=== PATIENT | female | born 1990 | race Caucasian/White ===

== ENCOUNTER 2017-06-10 09:28 | Outpatient (CLI) | END 2017-06-10 09:29 | disposition home or self-care (01) | LOC: RHC-LAB 09:28 | PROVIDERS: ATTEND Nurse Practitioner Family | DX: J02.9 Acute pharyngitis, unspecified (principal) | CPT/HCPCS: 87651 ==

== ENCOUNTER 2017-07-01 14:55 | Outpatient (CLI) | END 2017-07-01 14:56 | disposition home or self-care (01) | LOC: RHC-LAB 14:55 | PROVIDERS: ATTEND Nurse Practitioner Family | DX: R50.9 Fever, unspecified (principal) | CPT/HCPCS: 87651; 87804 ==

== ENCOUNTER 2017-09-21 15:56 | Outpatient (CLI) | END 2017-09-21 15:57 | disposition home or self-care (01) | LOC: RHC-LAB 15:56 | PROVIDERS: ATTEND Emergency Medicine | DX: F41.1 Generalized anxiety disorder (principal); F32.1 Major depressive disorder, single episode, moderate; K27.9 Peptic ulcer, site unspecified, unspecified as acute or chronic, without hemorrhage or perforation | CPT/HCPCS: 36415; 80053; 85025 ==

== ENCOUNTER 2017-11-05 09:38 | Outpatient (CLI) ==
--- NOTE | 2017-11-05 11:42 | US ---
EXAM: Ultrasound abdomen limited right upper quadrant HISTORY: Epigastric pain COMPARISON: 09/06/2015 TECHNIQUE: Limited ultrasound abdomen right upper quadrant was performed FINDINGS: Visualized portion pancreas appears normal. Portions of the pancreas obscured secondary t o bowel gas shadowing. Liver normal in size and echogenicity. Stable 2 cm region of echogenicity in the falciform region, likely represents focal fat. Main portal vein patent with normal direction of flow. No shadowing gallstones. No gallbladder wall thickening or pericholecystic fluid. Areas of r ing-down artifact in the gallbladder, consistent with mild adenomyomatosis. No biliary duct dilation with common bile duct measuring 0.4 cm. IMPRESSION: No cholelithiasis. No gallbladder wall thickening. Findings suggesting mild adenomyoma tosis.
== END 2017-11-05 09:39 | disposition home or self-care (01) ==
LOC: RAD 09:38
PROVIDERS: ATTEND Emergency Medicine
DX: R10.13 Epigastric pain (principal)

== ENCOUNTER 2018-08-31 16:18 | Outpatient (CLI) | END 2018-08-31 16:19 | disposition home or self-care (01) | LOC: RHC-LAB 16:18 | PROVIDERS: ATTEND Nurse Practitioner Family | DX: R82.4 Acetonuria (principal) | CPT/HCPCS: 81001 ==

== ENCOUNTER 2018-09-01 15:26 | Outpatient (CLI) ==
--- NOTE | 2018-09-01 15:53 | DI ---
EXAM: KUB. History: Abdominal pain. Findings: Nonspecific but nonobstructive bowel gas pattern. No free intraperitoneal air. No suspic ious calcifications. Six lumbar type vertebral bodies. Partial sacralization of L6 on the right. M ild colonic stool Impression: No acute radiographic findings within the abdomen.
--- NOTE | 2018-09-01 15:55 | DI ---
EXAM: Lumbar spine three view HISTORY: Dorsalgia, unspecified COMPARISON: None TECHNIQUE: Three views lumbar spine were performed FINDINGS: Sacroiliac joints intact. Sacral arcuate intact. Vertebral bodies normal height. No fra cture. No subluxation. Intervertebral disc spaces maintained. Transitional vertebral anatomy on th e right at the lumbosacral junction. IMPRESSION: 1. No fracture or subluxation. 2. Transitional vertebral anatomy on the right at the lumbosacral junction.
== END 2018-09-01 15:27 | disposition home or self-care (01) ==
LOC: RAD 15:26
PROVIDERS: ATTEND Nurse Practitioner Family
DX: M54.9 Dorsalgia, unspecified (principal); G89.29 Other chronic pain; R10.9 Unspecified abdominal pain

== ENCOUNTER 2018-09-03 15:17 | Outpatient (CLI) | END 2018-09-03 15:18 | disposition home or self-care (01) | LOC: LAB 15:17 | PROVIDERS: ATTEND Nurse Practitioner Family | DX: Z00.00 Encounter for general adult medical examination without abnormal findings (principal); R82.4 Acetonuria | CPT/HCPCS: 36415; 80053; 80061; 81001; 84443; 85025 ==

== ENCOUNTER 2018-12-04 11:23 | Emergency (ER) ==
[2018-12-04 11:35] VITALS: BP 122/82; TEMP 98.6; BMI 26.8
[2018-12-04] MEDS ORDERED: SOLU-MEDROL 125 MG IM STA (11:55)
[2018-12-04] MEDS ORDERED: CLARITIN PO STA (11:58)
[2018-12-04] MEDS ORDERED: PEPCID PO STA (11:58)
--- NOTE | 2018-12-04 11:58 | ED.PDOC ---
General ED Provider: Dr. NANCY ALBERTS Chief Complaint: Urinary Problem Stated Complaint: Rash on the face and body. Thinks its a side effect of spironolactone which she was started for Acne. has stopped it two days ago. Also complains of burning after she completed her antibiotics for UTI yesterday. Time Seen by Physician: 11:40 Mode of Arrival: Walk-In Information Source: Patient Nursing and Triage Documentation Reviewed and Agree: Yes Does patient meet sepsis criteria?: No System Inflammatory Response Syndrome: Not Applicable Sepsis Protocol: For patient's 13 years and over: Temp is 96.8 and below OR 101 and greater Pulse >90 BPM Resp >20/minute Acutely Altered Mental Status Are patient's symptoms suggestive of a new infection, such as: -Pneumonia -Skin, Soft Tissue -Endocarditis -UTI -Bone, Joint Infection -Implantable Device -Acute Abdominal Infection -Wound Infection -Meningitis -Blood Stream Catheter Infection -Unknown Skin Complaint Exam - Skin Rash/Itching Complaint/Exam Onset/Duration: 1 week Symptoms Are: Still present Initial Severity: Moderate Current Severity: Severe Location: Face and Trunk Potential Exposures: Reports: Medicines (new medication- spironolactone made is worse.) Prior Treatment: Spironolactone Aggravating: Reports: None Alleviating: Reports: None Skin Findings: Present: Urticaria, Maculae, Papules Differential Diagnoses: Allergic Reaction, Drug Rash, Urticaria Review of Systems - Review Of Systems Constitutional: Reports: No symptoms Eyes: Reports: No symptoms Ears, Nose, Mouth, Throat: Reports: No symptoms Respiratory: Reports: No symptoms Cardiac: Reports: No symptoms GI: Reports: No symptoms : Reports: Dysuria Musculoskeletal: Reports: No symptoms Skin: Reports: Rash Neurological: Reports: Anxiety Endocrine: Reports: No symptoms Hematologic/Lymphatic: Reports: No symptoms All Other Systems: Reviewed and Negative Past Medical History - Past Medical History Previously Healthy: Yes Endocrine: Reports: None Cardiovascular: Reports: None Respiratory: Reports: None Hematological: Reports: None Gastrointestinal: Reports: None Genitourinary: Reports: None Neuro/Psych: Reports: None Musculoskeletal: Reports: None Cancer: Reports: None Last Menstrual Period: 1 month ago Other Pertinent Past Medical History: Chronic ACNE - Surgical History General Surgical History: Reports: None - Family History Family History: Reports: None - Social History Smoking Status: Former smoker Hx Substance Use: No Alcohol Screening: Occasionally - Immunizations Tetanus Shot up to Date: Yes Physical Exam - Physical Exam Appearance: Well-appearing, No pain distress, Well-nourished Eyes: ZO, EOMI, Conjunctiva clear ENT: Nose normal, Oropharynx normal Neck: Supple Respiratory: Airway patent, Breath sounds clear, Breath sounds equal, Respirations nonlabored Cardiovascular: RRR, Pulses normal, No rub, No murmur GI/: Soft, Nontender, No masses, Bowel sounds normal, No Organomegaly Musculoskeletal: Normal strength, ROM intact, No edema, No calf tenderness Skin: Warm, Dry Neurological: Sensation intact, Motor intact, Cranial nerves intact, Alert, Oriented Psychiatric: Anxious Critical Care Note - Critical Care Note Total Time (mins): 0 Course - Course Orders, Labs, Meds: Lab Review 12/04/18 12/04/18 11:55 11:55 Urine Color Yellow Urine Clarity Clear Urine pH 6.0 Ur Specific [place] >=1.030 Urine Protein Negative Urine Glucose (UA) Negative Urine Ketones Negative Urine Blood Negative Urine Nitrite Negative Urine Bilirubin Negative Urine Urobilinogen 0.2 Ur Leukocyte Esterase Negative Urine Test Negative Orders Category Date Time Status URINALYSIS C & S IF INDICATED Stat LAB 12/04/18 11:55 Completed URINE Stat LAB 12/04/18 11:55 Completed Famotidine [Pepcid] MEDS 12/04/18 11:58 Discontinued 20 mg PO ONCE STA Loratadine [Claritin] MEDS 12/04/18 11:58 Discontinued 10 mg PO ONCE STA Methylprednisolone Sod Succ/Pf [Solu-Medrol 125 mg] MEDS 12/04/18 11:55 Discontinued 125 mg IM ONCE STA Medications Discontinued Medications Generic Name Dose Route Start Last Admin Trade Name Freq PRN Reason Stop Dose Admin Famotidine 20 mg 12/04/18 11:58 12/04/18 12:10 Pepcid PO 12/04/18 11:59 20 mg ONCE STA Administration Loratadine 10 mg 12/04/18 11:58 12/04/18 12:10 Claritin PO 12/04/18 11:59 10 mg ONCE STA Administration Methylprednisolone Sodium Succinate 125 mg 12/04/18 11:55 12/04/18 12:10 Solu-Medrol 125 Mg IM 12/04/18 11:56 125 mg ONCE STA Administration Vital Signs: Temp Pulse Resp BP Pulse Ox 12/04/18 11:26 98.6 F 91 H 18 122/82 97 Departure - Departure Time of Disposition: 12:35 Disposition: HOME SELF-CARE Discharge Problem: Drug-induced skin rash Instructions: Acute Rash (ED) Condition: Stable Pt referred to PMD for follow-up: Yes IPMP verified?: No Additional Instructions: Take steroids as prescribe Get OTC Benadryl and take it for itching Followup with PCP Do not resume you SPIRONOLACTONE Prescriptions: Prednisone 20 mg PO DAILYWM #5 tablet Allergies/Adverse Reactions: Allergies Penicillins Allergy (Severe, Unverified 11/24/14 09:18) Hives Home Medications: Ambulatory Orders Doxylamine Succinate [Unisom Sleep Aid] 25 mg PO BEDTIME 08/31/18 Prednisone 20 mg PO DAILYWM #5 tablet 12/04/18
[2018-12-04 12:10] LABS: URINE PREGNANCY TEST NEGATIVE (NEGATIVE)
== END 2018-12-04 12:43 | disposition home or self-care (01) ==
LOC: ED 11:23
DX: L27.0 Generalized skin eruption due to drugs and medicaments taken internally (principal); T50.0X5A Adverse effect of mineralocorticoids and their antagonists, initial encounter
CPT/HCPCS: 81001; 81025; 96372; 99283